=== PATIENT | male | born 1985 | race Caucasian/White ===

== ENCOUNTER 2017-09-26 08:25 | Emergency (ER) | payer OTHER, SELFPAY ==
[~2017-09-26] VITALS: Ht 180.3 cm; Wt 74.8 kg
[2017-09-26 08:27] VITALS: BP 169/93
[2017-09-26] MEDS ORDERED: IBUPROFEN 200 MG TABLET PO ONE (09:30)
[2017-09-26 09:41] LABS: BASOPHILS # (AUTO) 0.01 x10^3/uL (0-0.1); BASOPHILS % (AUTO) 0 % (0-1); EOSINOPHILS # (AUTO) 0.15 x10^3/uL (0-0.4); EOSINOPHILS % (AUTO) 2 % (1-7); LYMPHOCYTES % (AUTO) 13 % (22-44); MD NO; MEAN CORPUSCULAR HEMOGLOBIN 33.3 pg (27.5-34.5); MEAN CORPUSCULAR HGB CONC 34.4 g/dL (33.2-36.2); MEAN CORPUSCULAR VOLUME 96.8 fL (81-97); MONOCYTES % (AUTO) 7 % (2-9); NEUTROPHILS # (AUTO) 7.54 x10^3/uL (1.8-6.8); NEUTROPHILS % (AUTO) 79 % (42-75); PLATELET COUNT 212 x10^3/uL (130-400); RED BLOOD COUNT 4.34 x10^6/uL (4.38-5.82); RED CELL DISTRIBUTION WIDTH 12.4 % (9.4-14.8)
[2017-09-26] MEDS ORDERED: IBUPROFEN 200 MG TABLET ONE (10:06)
== END 2017-09-26 10:14 | disposition home or self-care (01) ==
LOC: ED 10:02
DX: L72.3 Sebaceous cyst (principal); Z88.0 Allergy status to penicillin; Z88.5 Allergy status to narcotic agent
CPT/HCPCS: 36415; 76536; 85025; 99285

== ENCOUNTER 2020-04-26 11:07 | Emergency (ER) | payer OTHER ==
[~2020-04-26] VITALS: Ht 180.3 cm; Wt 70.1 kg
[2020-04-26 12:26] VITALS: BP 148/94
== END 2020-04-26 13:11 | disposition home or self-care (01) ==
LOC: ED 13:10
DX: G89.11 Acute pain due to trauma (principal); M25.512 Pain in left shoulder; F17.210 Nicotine dependence, cigarettes, uncomplicated; V83.5XXA Driver of special industrial vehicle injured in nontraffic accident, initial encounter; Y93.89 Activity, other specified; Y92.89 Other specified places as the place of occurrence of the external cause; Y99.0 Civilian activity done for income or pay
CPT/HCPCS: 99283